=== PATIENT | male | born 1940 | race Caucasian/White ===

== ENCOUNTER 2016-10-14 11:22 | Inpatient (IN) | payer MEDICARE, BC ==
[2016-10-14] VITALS (9 sets, daily range): BP systolic 139–166; BP diastolic 61–97; PULSE 67–115; RESP 16–18; TEMP 98.2–99.1; O2SAT 97–98
[~2016-10-14] VITALS: Ht 175.3 cm; Wt 70.2 kg
[2016-10-14] MEDS ORDERED: FOLI1TAB4 PO (11:43)
[2016-10-14] MEDS ORDERED: B P MED PO (11:43)
[2016-10-14] MEDS ORDERED: SODIUM CHLOR 0.9% 1000 ML INJ 1,000 ML IV SCH (11:50)
--- NOTE | 2016-10-14 11:56 | PD ---
HPI Chief Complaint: GI Complaint Time Seen by Provider: 11:38 Travel History International Travel<30 days: No Contact w/Intl Traveler<30days: No Traveled to known affect area: No History of Present Illness HPI 76-year-old male with history of hypertension, alcoholism drinking a moderate amount of beer and whiskey daily for several years, here for evaluation of lower abdominal discomfort and black stools. Symptoms started yesterday. He had a couple episodes of vomiting today, but is unsure if there was blood or coffee-grounds. No history of abdominal surgeries. Abdominal discomfort is lower, mild, no modifying factors. He has felt somewhat weak, lightheaded, as well as chills. No antiplatelet or anticoagulant use. He has never had a colonoscopy. Last alcoholic beverage was around 1 PM yesterday. He states he has not felt like drinking because he feels sick. PFS Past Medical History Cardiovascular Problems: Yes (HTN) Diminished Hearing: No Hypertension: Yes Influenza Vaccination: No ?: Not Past Surgical History Surgical History: No Previous Surgery Other Surgery: Yes (finger amputation) Social History Alcohol Use: Yes (daily) Tobacco Use: No Allergies-Medications (Allergen,Severity, Reaction): Coded Allergies: No Known Allergies (Unverified , 10/14/16) Reported Meds & Prescriptions Reported Meds & Active Scripts Active Reported Folate (Folic Acid) 1 Mg Tab 1 Mg PO DAILY [b.p. med] 10 Mg PO DAILY Review of Systems Except as stated in HPI: all other systems reviewed are Neg Physical Exam Narrative GENERAL: Well-developed, well-nourished, comfortable, no acute distress. SKIN: Warm and dry. Pallor HEAD: Atraumatic. Normocephalic. EYES: Pupils equal and round. No scleral icterus. No injection or drainage. Conjunctival pallor. ENT: Mucous membranes pink and dry. NECK: Trachea midline. No JVD. CARDIOVASCULAR: Tachycardic, rate 110, regular. RESPIRATORY: No accessory muscle use. Clear to auscultation. Breath sounds equal bilaterally. GASTROINTESTINAL: Abdomen soft, non-tender, nondistended. Normal bowel sounds. No peritoneal signs. RECTUM: No masses, no fissures, no hemorrhoids, heme positive black stool. MUSCULOSKELETAL: No obvious deformities. No clubbing. No cyanosis. No edema. NEUROLOGICAL: Awake and alert. No obvious cranial nerve deficits. Motor grossly within normal limits. Normal speech. PSYCHIATRIC: Appropriate mood and affect; insight and judgment normal. Data Data Last Documented VS Vital Signs Date Time Temp Pulse Resp B/P Pulse Ox O2 Delivery O2 Flow Rate FiO2 10/14/16 13:46 67 18 166/82 98 Room Air 10/14/16 11:30 99.1 Orders Complete Blood Count With Diff (10/14/16 11:50) Comprehensive Metabolic Panel (10/14/16 11:50) Prothrombin Time / Inr (Pt) (10/14/16 11:50) Act Partial Throm Time (Ptt) (10/14/16 11:50) Ct Abd/Pel W Iv Contrast(Rout) (10/14/16 11:50) Iv Access Insert/Monitor (10/14/16 11:50) Ecg Monitoring (10/14/16 11:50) Oximetry (10/14/16 11:50) Sodium Chlor 0.9% 1000 Ml Inj (Ns 1000 M (10/14/16 11:50) Sodium Chloride 0.9% Flush (Ns Flush) (10/14/16 12:00) Sodium Chloride 0.9% Flush (Ns Flush) (10/14/16 12:00) Octreotide Inj (Sandostatin Inj) (10/14/16 12:00) Pantoprazole Inj (Protonix Inj) (10/14/16 12:00) Pantoprazole Inj (Protonix Inj) (10/14/16 12:00) Type And Screen (10/14/16 11:57) Magnesium (Mg) (10/14/16 12:00) Iohexol 350 Inj (Omnipaque 350 Inj) (10/14/16 13:05) Labs Laboratory Tests Test 10/14/16 12:00 White Blood Count 8.5 TH/MM3 Red Blood Count 3.90 MIL/MM3 Hemoglobin 13.1 GM/DL Hematocrit 37.2 % Mean Corpuscular Volume 95.4 FL Mean Corpuscular Hemoglobin 33.7 PG Mean Corpuscular Hemoglobin 35.3 % Concent Red Cell Distribution Width 13.2 % Platelet Count 264 TH/MM3 Mean Platelet Volume 7.6 FL Neutrophils (%) (Auto) 68.5 % Lymphocytes (%) (Auto) 22.2 % Monocytes (%) (Auto) 6.9 % Eosinophils (%) (Auto) 1.3 % Basophils (%) (Auto) 1.1 % Neutrophils # (Auto) 5.8 TH/MM3 Lymphocytes # (Auto) 1.9 TH/MM3 Monocytes # (Auto) 0.6 TH/MM3 Eosinophils # (Auto) 0.1 TH/MM3 Basophils # (Auto) 0.1 TH/MM3 CBC Comment DIFF FINAL Differential Comment Prothrombin Time 10.6 SEC Prothromb Time International 1.0 RATIO Ratio Activated Partial 24.3 SEC Thromboplast Time Sodium Level 139 MEQ/L Potassium Level 4.3 MEQ/L Chloride Level 102 MEQ/L Carbon Dioxide Level 27.1 MEQ/L Anion Gap 10 MEQ/L Blood Urea Nitrogen 39 MG/DL Creatinine 1.10 MG/DL Estimat Glomerular Filtration 65 ML/MIN Rate Random Glucose 126 MG/DL Calcium Level 9.3 MG/DL Magnesium Level 1.7 MG/DL Total Bilirubin 1.0 MG/DL Aspartate Amino Transf 30 U/L (AST/SGOT) Alanine Aminotransferase 26 U/L (ALT/SGPT) Alkaline Phosphatase 51 U/L Total Protein 7.3 GM/DL Albumin 3.7 GM/DL [facility] Medical Decision Making Medical Screen Exam Complete: Yes Emergency Medical Condition: Yes Differential Diagnosis GI bleed likely upper, variceal bleed, gastritis, peptic ulcers, anemia, diverticular bleed, diverticulitis, colitis, AVM, colon cancer Narrative Course Vital signs show heart rate 115, blood pressure 141/97, pulse ox 98% on room air , oral temp of 99.1F. Patient was placed on the monitor, IV established, labs drawn. The patient was given a Protonix bolus and started on a Protonix drip for suspected upper GI bleed either from gastritis or peptic ulcers. There is no bleed is also on the differential. His hemoglobin is normal and his heart rate improved to 89 after receiving IV fluids. The patient had a short run of V. tach. Magnesium level will be checked. CBC is unremarkable. Specifically his hemoglobin is 13.1 and his hematocrit is 37.2. CMP is remarkable for BUN 39, otherwise unremarkable. This is likely secondary to GI bleed. Magnesium is 1.7. Coags are normal. After receiving lab results, case was discussed with on-call mink farmer Dr. Christianson who recommends that the patient be admitted to the main hospital for likely endoscopy tomorrow. CT abdomen pelvis: CONCLUSION: Other than some asymmetric size of the seminal vesicles, unremarkable CT scan of the abdomen and pelvis. Some areas of decompressed sigmoid colon with a thick wall, not an unusual finding. No adenopathy or mass is seen. The patient was made aware of all findings and of plan for admission for GI bleed. Case discussed with the patient's primary care physician Dr. Santana who will admit the patient to his service. HemaPrompt Point of Care Internal Pos. & Neg. Controls: Passed Fecal Specimen Occult Blood: Positive Comment Heme-positive black stool. Diagnosis Primary Impression: GI bleed Qualified Code: K92.1 - Gastrointestinal hemorrhage with melena Admitting Information Admitting Physician Requests: Admit Hi Solano MD Oct 14, 2016 11:56
[2016-10-14] MEDS ORDERED: OCTREOTIDE INJ 500 MCG in SODIUM CHLORID 0.9% 500 ML INJ 500 ML IV SCH (12:00)
[2016-10-14] MEDS ORDERED: PANTOPRAZOLE INJ 80 MG in SODIUM CHLORIDE 0.9% INJ 35 ML IV ONE (12:00)
[2016-10-14] MEDS ORDERED: SODIUM CHLORIDE 0.9% FLUSH 5 ML FLUSH IVF PRN ×2 (12:00)
[2016-10-14 12:11] LABS: AUTOMATED NEUTROPHIL # 5.8 TH/MM3 (1.8-7.7); BASOPHIL # 0.1 TH/MM3 (0-0.2); BASOPHIL % 1.1 % (0.0-2.0); EOSINOPHIL # 0.1 TH/MM3 (0-0.4); EOSINOPHIL % 1.3 % (0.0-4.0); HEMATOCRIT 37.2 % (39.0-51.0); HEMO FLAGS DIFF FINAL; LYMPH % 22.2 % (9.0-44.0); LYMPHOCYTE # 1.9 TH/MM3 (1.0-4.8); MEAN CELL VOLUME 95.4 FL (80.0-100.0); MEAN CORPUSCULAR HEMOGLOBIN 33.7 PG (27.0-34.0); MEAN CORPUSCULAR HGB CONC 35.3 % (32.0-36.0); MONO % 6.9 % (0.0-8.0); NEUT % 68.5 % (16.0-70.0); PLATELET COUNT 264 TH/MM3 (150-450); RED CELL DISTRIBUTION WIDTH 13.2 % (11.6-17.2); WHITE BLOOD COUNT 8.5 TH/MM3 (4.0-11.0)
[2016-10-14 12:19] LABS: CHLORIDE 102 MEQ/L (98-107); SODIUM (NA) 139 MEQ/L (136-145)
[2016-10-14 12:20] LABS: POTASSIUM 4.3 MEQ/L (3.5-5.1)
[2016-10-14] MEDS: PANTOPRAZOLE INJ 80 MG in SODIUM CHLORIDE 0.9% INJ 100 ML IV SCH ×2 (12:21→20:36)
[2016-10-14 12:23] LABS: ANION GAP 10 MEQ/L (5-15); BICARBONATE 27.1 MEQ/L (21.0-32.0); BLOOD UREA NITROGEN 39 MG/DL (7-18); MAGNESIUM 1.7 MG/DL (1.5-2.5)
[2016-10-14 12:24] LABS: APTT (PATIENT) 24.3 SEC (24.3-30.1); PROTHROMBIN TIME - PATIENT 10.6 SEC (9.8-11.6)
[2016-10-14 12:26] LABS: ALT (GPT) 26 U/L (12-78); AST (GOT) 30 U/L (15-37); GLOMERULAR FILTRATION RATE 65 ML/MIN (>89)
[2016-10-14 12:29] LABS: ALKALINE PHOSPHATASE 51 U/L (45-117)
[2016-10-14] MEDS ORDERED: IOHEXOL 350 MG/ML 10 ML VIAL (for RAD DIAG) IV ONE (13:05)
--- NOTE | 2016-10-14 13:27 | RADHPO ---
EXAM DATE/TIME: 10/14/2016 12:52 [facility] COMPARISON: No previous studies available for comparison. INDICATIONS : Lower abdomen back pain and black stool today. IV CONTRAST: 71 cc Omnipaque 350 (iohexol) IV ORAL CONTRAST: No oral contrast ingested. RADIATION DOSE: 9.95 CTDIvol (mGy) MEDICAL HISTORY : Hypertension. SURGICAL HISTORY : None. ENCOUNTER: Initial ACUITY: 1 day PAIN SCALE: 7/10 LOCATION: Bilateral lower quadrant TECHNIQUE: Volumetric scanning of the abdomen and pelvis was performed. Using automated exposure control and adjustment of the mA and/or kV according to patient size, radiation dose was kept as low as reasonably achievable to obtain optimal diagnostic quality images. FINDINGS: CT scan of the abdomen and pelvis demonstrates the liver, gallbladder, pancreas, adrenal glands and k idneys are unremarkable. Spleen is unremarkable. There is no bowel wall thickening. No obvious mas s is seen. The left seminal vesicle is slightly larger than the right. The bladder is unremarkable. Some portions of the sigmoid colon on the reformatted image is somewhat thick-walled but they are a lso not well distended. Bone windows are unremarkable. CONCLUSION: Other than some asymmetric size of the seminal vesicles, unremarkable CT scan of the abdomen and pelv is. Some areas of decompressed sigmoid colon with a thick wall, not an unusual finding. No adenopat hy or mass is seen. Robe Mendoza MD on October 14, 2016 at 13:14 Board Certified Radiologist. This report was verified electronically.
--- NOTE | 2016-10-14 15:53 | HHI.HP ---
History of Present Illness Primary Care Physician Austin Santana, DO Admission Diagnosis GI bleed dark stool black for several days Diagnoses: History of Present Illness long trm alcohol daily use now with dark stools Review of Systems Gastrointestinal: COMPLAINS OF: Abdominal pain, Black stools Past Family Social History Allergies: Coded Allergies: No Known Allergies (Unverified , 10/14/16) Past Medical History hypertension Past Surgical History denies Reported Medications Current Medications Medications (Trade) Dose Ordered Sig/Emre Route PRN Reason Start Time Stop Time Status Last Admin Dose Admin IV Flush (NS Flush) 2 ml UNSCH PRN IVF FLUSH AFTER USING IV ACCESS 10/14/16 12:00 10/14/16 12:10 IV Flush 2 ml 2 ml UNSCH PRN IVF FLUSH AFTER USING IV ACCESS 10/14/16 12:00 Pantoprazole Sodium/Sodium Chloride (Protonix Inj/NS Inj) 100 ml @ 10 mls/hr Q10H IV 10/14/16 12:00 10/14/16 12:21 Active Ordered Medications Current Medications Medications (Trade) Dose Ordered Sig/Emre Route PRN Reason Start Time Stop Time Status Last Admin Dose Admin IV Flush (NS Flush) 2 ml UNSCH PRN IVF FLUSH AFTER USING IV ACCESS 10/14/16 12:00 10/14/16 12:10 IV Flush 2 ml 2 ml UNSCH PRN IVF FLUSH AFTER USING IV ACCESS 10/14/16 12:00 Pantoprazole Sodium/Sodium Chloride (Protonix Inj/NS Inj) 100 ml @ 10 mls/hr Q10H IV 10/14/16 12:00 10/14/16 12:21 Family History father with a gi cancer Current Medications Medications (Trade) Dose Ordered Sig/Emre Route PRN Reason Start Time Stop Time Status Last Admin Dose Admin IV Flush (NS Flush) 2 ml UNSCH PRN IVF FLUSH AFTER USING IV ACCESS 10/14/16 12:00 10/14/16 12:10 IV Flush 2 ml 2 ml UNSCH PRN IVF FLUSH AFTER USING IV ACCESS 10/14/16 12:00 Pantoprazole Sodium/Sodium Chloride (Protonix Inj/NS Inj) 100 ml @ 10 mls/hr Q10H IV 10/14/16 12:00 10/14/16 12:21 Social History heavy daily drinker six pack plus of beer and 3-5 alcoholic drinks per evening Physical Exam Vital Signs Vital Signs Date Time Temp Pulse Resp B/P Pulse Ox O2 Delivery O2 Flow Rate FiO2 10/14/16 15:11 68 18 154/73 97 Room Air 10/14/16 13:46 67 18 166/82 98 Room Air 10/14/16 13:07 71 18 158/72 97 Room Air 10/14/16 12:04 89 18 151/85 98 Room Air 10/14/16 11:30 99.1 115 16 141/97 98 Physical Exam GENERAL: This is a well-nourished, well-developed patient, in no apparent distress. SKIN: No rashes, ecchymoses or lesions. Cool and dry. HEAD: Atraumatic. Normocephalic. No temporal or scalp tenderness. EYES: Pupils equal round and reactive. Extraocular motions intact. No scleral icterus. No injection or drainage. ENT: Nose without bleeding, purulent drainage or septal hematoma. Throat without erythema, tonsillar hypertrophy or exudate. Uvula midline. Airway patent.many missing teeth NECK: Trachea midline. No JVD or lymphadenopathy. Supple, nontender, no meningeal signs. CARDIOVASCULAR: Regular rate and rhythm without murmurs, gallops, or rubs. RESPIRATORY: Clear to auscultation. Breath sounds equal bilaterally. No wheezes , rales, or rhonchi. GASTROINTESTINAL: Abdomen soft, epigastric tenderness present, nondistended. No hepato-splenomegaly, or palpable masses. No guarding. MUSCULOSKELETAL: Extremities without clubbing, cyanosis, or edema. No joint tenderness, effusion, or edema noted. No calf tenderness. Negative Homans sign bilaterally. NEUROLOGICAL: Awake and alert. Cranial nerves II through XII intact. Motor and sensory grossly within normal limits. Five out of 5 muscle strength in all muscle groups. Normal speech. Laboratory Laboratory Tests Test 10/14/16 12:00 White Blood Count 8.5 Red Blood Count 3.90 Hemoglobin 13.1 Hematocrit 37.2 Mean Corpuscular Volume 95.4 Mean Corpuscular Hemoglobin 33.7 Mean Corpuscular Hemoglobin 35.3 Concent Red Cell Distribution Width 13.2 Platelet Count 264 Mean Platelet Volume 7.6 Neutrophils (%) (Auto) 68.5 Lymphocytes (%) (Auto) 22.2 Monocytes (%) (Auto) 6.9 Eosinophils (%) (Auto) 1.3 Basophils (%) (Auto) 1.1 Neutrophils # (Auto) 5.8 Lymphocytes # (Auto) 1.9 Monocytes # (Auto) 0.6 Eosinophils # (Auto) 0.1 Basophils # (Auto) 0.1 CBC Comment DIFF FINAL Differential Comment Prothrombin Time 10.6 Prothromb Time International 1.0 Ratio Activated Partial 24.3 Thromboplast Time Sodium Level 139 Potassium Level 4.3 Chloride Level 102 Carbon Dioxide Level 27.1 Anion Gap 10 Blood Urea Nitrogen 39 Creatinine 1.10 Estimat Glomerular Filtration 65 Rate Random Glucose 126 Calcium Level 9.3 Magnesium Level 1.7 Total Bilirubin 1.0 Aspartate Amino Transf 30 (AST/SGOT) Alanine Aminotransferase 26 (ALT/SGPT) Alkaline Phosphatase 51 Total Protein 7.3 Albumin 3.7 Blood Type A POSITIVE Antibody Screen NEGATIVE Blood Bank Comment Result Diagram: 10/14/16 1200 10/14/16 1200 Assessment and Plan Assessment and Plan gi bleed will admit and request GI for panendoscopy HTN controlled will transfer to main campus for gi consult and endoscopy Discharge Planning home Austin Santana DO Oct 14, 2016 15:53
[2016-10-14] MEDS ORDERED: LORazepam 2 MG/ML VIAL IV PUSH PRN ×4 (16:00)
[2016-10-14] MEDS ORDERED: NALOXONE HCL 0.4 MG/ML AMP IV PRN (16:00)
[2016-10-14] MEDS ORDERED: LORazepam 2 MG TAB PO PRN (16:00)
[2016-10-14] MEDS ORDERED: LORazepam 1 MG TAB PO PRN (16:00)
[2016-10-14] MEDS ORDERED: FLUMAZENIL 0.5 MG/5 ML VIAL IV PUSH PRN (16:00)
[2016-10-14] MEDS ORDERED: SODIUM CHLORIDE 0.9% FLUSH 5 ML FLUSH FLUSH PRN (16:00)
[2016-10-14] MEDS ORDERED: LISI10TA3 PO (16:11)
[2016-10-14 16:14] LABS: AUTOMATED NEUTROPHIL # 5.7 TH/MM3 (1.8-7.7); BASOPHIL # 0.2 TH/MM3 (0-0.2); BASOPHIL % 1.7 % (0.0-2.0); EOSINOPHIL # 0.1 TH/MM3 (0-0.4); EOSINOPHIL % 0.9 % (0.0-4.0); HEMATOCRIT 35.3 % (39.0-51.0); HEMO FLAGS AUTO DIFF; LYMPHOCYTE # 2.5 TH/MM3 (1.0-4.8); MEAN CELL VOLUME 96.1 FL (80.0-100.0); MEAN CORPUSCULAR HGB CONC 34.3 % (32.0-36.0); MONO % 5.5 % (0.0-8.0); NEUT % 63.9 % (16.0-70.0); PLATELET COUNT 253 TH/MM3 (150-450); RED BLOOD COUNT 3.68 MIL/MM3 (4.50-5.90); RED CELL DISTRIBUTION WIDTH 13.4 % (11.6-17.2)
[2016-10-14 16:22] LABS: CHLORIDE 104 MEQ/L (98-107); POTASSIUM 3.9 MEQ/L (3.5-5.1); SODIUM (NA) 141 MEQ/L (136-145)
[2016-10-14 16:26] LABS: ANION GAP 12 MEQ/L (5-15); BICARBONATE 25.5 MEQ/L (21.0-32.0); BLOOD UREA NITROGEN 34 MG/DL (7-18)
[2016-10-14 16:29] LABS: ALT (GPT) 22 U/L (12-78); AST (GOT) 19 U/L (15-37); GLOMERULAR FILTRATION RATE 78 ML/MIN (>89); SCAN/DIFF AUTO DIFF CONFIRMED
[2016-10-14 16:31] LABS: TOTAL BILIRUBIN ADULT 0.8 MG/DL (0.2-1.0)
[2016-10-14 16:32] LABS: ALKALINE PHOSPHATASE 49 U/L (45-117)
[2016-10-14] MEDS: SODIUM CHLORIDE 0.9% FLUSH 5 ML FLUSH FLUSH SCH (20:36)
[2016-10-15] VITALS (7 sets, daily range): BP systolic 103–157; BP diastolic 67–80; PULSE 57–74; RESP 16–19; TEMP 97.7–98.4; O2SAT 96–98
[2016-10-15 07:56] LABS: AUTOMATED NEUTROPHIL # 3.6 TH/MM3 (1.8-7.7); BASOPHIL % 0.5 % (0.0-2.0); EOSINOPHIL # 0.4 TH/MM3 (0-0.4); EOSINOPHIL % 5.3 % (0.0-4.0); HEMATOCRIT 31.4 % (39.0-51.0); HEMO FLAGS DIFF FINAL; LYMPH % 33.1 % (9.0-44.0); LYMPHOCYTE # 2.2 TH/MM3 (1.0-4.8); MEAN CORPUSCULAR HEMOGLOBIN 33.2 PG (27.0-34.0); MEAN CORPUSCULAR HGB CONC 34.2 % (32.0-36.0); MONO % 6.5 % (0.0-8.0); NEUT % 54.6 % (16.0-70.0); PLATELET COUNT 208 TH/MM3 (150-450); RED BLOOD COUNT 3.24 MIL/MM3 (4.50-5.90); RED CELL DISTRIBUTION WIDTH 13.5 % (11.6-17.2); WHITE BLOOD COUNT 6.7 TH/MM3 (4.0-11.0)
[2016-10-15 08:18] LABS: ALKALINE PHOSPHATASE 47 U/L (45-117); ALT (GPT) 20 U/L (12-78); ANION GAP 9 MEQ/L (5-15); AST (GOT) 17 U/L (15-37); BICARBONATE 27.6 MEQ/L (21.0-32.0); BLOOD UREA NITROGEN 26 MG/DL (7-18); CHLORIDE 104 MEQ/L (98-107); GLOMERULAR FILTRATION RATE 77 ML/MIN (>89); POTASSIUM 3.8 MEQ/L (3.5-5.1); SODIUM (NA) 141 MEQ/L (136-145); TOTAL BILIRUBIN ADULT 0.9 MG/DL (0.2-1.0)
[2016-10-15] MEDS: LISINOPRIL 10 MG TAB PO SCH (08:58)
[2016-10-15] MEDS: SODIUM CHLORIDE 0.9% FLUSH 5 ML FLUSH FLUSH SCH ×2 (08:58→20:27)
[2016-10-15] MEDS: FOLIC ACID 1 MG TAB PO SCH (08:58)
[2016-10-15] MEDS: PANTOPRAZOLE INJ 80 MG in SODIUM CHLORIDE 0.9% INJ 100 ML IV SCH ×2 (08:58→17:43)
--- NOTE | 2016-10-15 14:07 | HHI.PR ---
Subjective Remarks resting quietly no further dark stools Objective Vital Signs Date Time Temp Pulse Resp B/P Pulse Ox O2 Delivery O2 Flow Rate FiO2 10/15/16 12:19 98.2 60 18 137/67 98 10/15/16 08:07 98.3 60 18 157/70 98 10/15/16 04:00 97.7 57 16 114/77 97 10/15/16 00:00 98.4 66 18 103/68 97 10/14/16 20:32 75 10/14/16 20:00 98.4 74 18 139/61 97 10/14/16 18:43 98.2 77 18 165/81 97 10/14/16 17:15 73 18 155/87 98 Room Air 10/14/16 15:11 68 18 154/73 97 Room Air I/O 10/14/16 10/14/16 10/14/16 10/15/16 10/15/16 10/15/16 07:00 15:00 23:00 07:00 15:00 23:00 Intake Total 1000 ml 72 ml 192 ml Balance 1000 ml 72 ml 192 ml Intake Oral 120 ml IV Total 1000 ml 72 ml 72 ml # Voids 1 1 # Bowel Movements 2 1 Result Diagram: 10/15/16 0727 10/15/16 0727 Imaging Last Impressions Abdomen/Pelvis CT 10/14/16 1150 Signed Impressions: Service Date/Time: Friday, October 14, 2016 12:52 - CONCLUSION: Other than some asymmetric size of the seminal vesicles, unremarkable CT scan of the abdomen and pelvis. Some areas of decompressed sigmoid colon with a thick wall , not an unusual finding. No adenopathy or mass is seen. Robe Mendoza MD Objective Remarks GENERAL: SKIN: Warm and dry. HEAD: Atraumatic. Normocephalic. EYES: Pupils equal and round. No scleral icterus. No injection or drainage. ENT: No nasal bleeding or discharge. Mucous membranes pink and moist. NECK: Trachea midline. No JVD. CARDIOVASCULAR: Regular rate and rhythm. RESPIRATORY: No accessory muscle use. Clear to auscultation. Breath sounds equal bilaterally. GASTROINTESTINAL: Abdomen soft, non-tender, nondistended. Hepatic and splenic margins not palpable. MUSCULOSKELETAL: Extremities without clubbing, cyanosis, or edema. No obvious deformities. NEUROLOGICAL: Awake and alert. No obvious cranial nerve deficits. Motor grossly within normal limits. Five out of 5 muscle strength in the arms and legs. Normal speech. PSYCHIATRIC: Appropriate mood and affect; insight and judgment normal. Medications and IVs Current Medications Medications (Trade) Dose Ordered Sig/Emre Route PRN Reason Start Time Stop Time Status Last Admin Dose Admin IV Flush (NS Flush) 2 ml UNSCH PRN IVF FLUSH AFTER USING IV ACCESS 10/14/16 12:00 10/14/16 12:10 IV Flush 2 ml 2 ml UNSCH PRN IVF FLUSH AFTER USING IV ACCESS 10/14/16 12:00 Pantoprazole Sodium/Sodium Chloride (Protonix Inj/NS Inj) 100 ml @ 10 mls/hr Q10H IV 10/14/16 12:00 10/15/16 08:58 Folic Acid (Folate) 1 mg DAILY PO 10/15/16 09:00 10/15/16 08:58 Lisinopril (Prinivil) 10 mg DAILY PO 10/15/16 09:00 10/15/16 08:58 IV Flush (NS Flush) 2 ml UNSCH PRN FLUSH FLUSH AFTER USING IV ACCESS 10/14/16 16:00 IV Flush (NS Flush) 2 ml BID FLUSH 10/14/16 21:00 10/15/16 08:58 Naloxone HCl (Narcan Inj) 0.4 mg UNSCH PRN IV SEE LABEL COMMENTS 10/14/16 16:00 Lorazepam (Ativan) 1 mg Q4H PRN PO CIWA 8 - 10 10/14/16 16:00 Lorazepam (Ativan Inj) 1 mg Q4H PRN IV PUSH CIWA 8 - 10 10/14/16 16:00 Lorazepam (Ativan) 2 mg Q2H PRN PO CIWA 11-14 10/14/16 16:00 Lorazepam (Ativan Inj) 2 mg Q2H PRN IV PUSH CIWA 11-14 10/14/16 16:00 Lorazepam (Ativan Inj) 2 mg Q1H PRN IV PUSH CIWA 15-20 10/14/16 16:00 Lorazepam (Ativan Inj) 2 mg Q15M PRN IV PUSH CIWA > 20 10/14/16 16:00 Assessment and Plan Assessment and Plan gi bleed will admit and request GI for panendoscopy HTN controlled await gi consult and endoscopy Discharge Planning 1hAustin Shaw DO Oct 15, 2016 14:07
[2016-10-15] MEDS ORDERED: MAGNESIUM CITRATE SOLN 300 ML BTL PO ONE (18:00)
[2016-10-15 20:36] LABS: BICARBONATE 27.8 MEQ/L (21.0-32.0); POTASSIUM 3.5 MEQ/L (3.5-5.1)
--- NOTE | 2016-10-15 20:51 | PD.CONS ---
HPI History of Present Illness This is a 76 year old male who presents with complaints of black tarry stool that started yesterday and this concerned him and so he presented to the emergency room the patient reports history of upper GI bleed about 3 years ago and he had ulcers he reports he did have upper endoscopy but does not recall having had a colonoscopy the patient admits to using Aleve some irregularly he denies any abdominal pain denies any nausea vomiting hematemesis coffee-ground emesis denies any change in appetite or weight loss denies any lightheadedness or dizziness denies any chest pain or shortness of breath PFSH Past Medical History Hypertension, alcoholism, history of peptic ulcer disease Past Surgical History finger amputation Coded Allergies: No Known Allergies (Unverified , 10/14/16) Medications Folate (Folic Acid) 1 Mg Tab 1 Mg PO DAILY [b.p. med] 10 Mg PO DAILY Aleve Family History Noncontributory Social History Patient admits to alcohol but no tobacco Review of Systems ROS Review of systems Patient denies any headache dizziness blurry vision, denies any chest pain shortness of breath cough fever chills, Denies any palpitations or fatigue denies any polyuria dysuria hematuria, denies any numbness tingling or weakness, denies any skin rash pruritus or jaundice, denies any easy bruising or bleeding tendency, denies any recent change in mood GI Exam Vitals I&O Vital Signs Date Time Temp Pulse Resp B/P Pulse Ox O2 Delivery O2 Flow Rate FiO2 10/15/16 16:37 98.3 59 19 129/80 97 10/15/16 12:19 98.2 60 18 137/67 98 10/15/16 08:07 98.3 60 18 157/70 98 10/15/16 04:00 97.7 57 16 114/77 97 10/15/16 00:00 98.4 66 18 103/68 97 I/O 10/14/16 10/14/16 10/14/16 10/15/16 10/15/16 10/15/16 07:00 15:00 23:00 07:00 15:00 23:00 Intake Total 1000 ml 72 ml 192 ml 480 ml 191 ml Balance 1000 ml 72 ml 192 ml 480 ml 191 ml Intake Oral 120 ml 480 ml IV Total 1000 ml 72 ml 72 ml 191 ml # Voids 1 1 2 # Bowel Movements 2 1 0 Imaging Last Impressions Abdomen/Pelvis CT 10/14/16 1150 Signed Impressions: Service Date/Time: Friday, October 14, 2016 12:52 - CONCLUSION: Other than some asymmetric size of the seminal vesicles, unremarkable CT scan of the abdomen and pelvis. Some areas of decompressed sigmoid colon with a thick wall , not an unusual finding. No adenopathy or mass is seen. Robe Mendoza MD Laboratory Test 10/15/16 10/15/16 07:27 20:05 White Blood Count 6.7 TH/MM3 Red Blood Count 3.24 MIL/MM3 Hemoglobin 10.7 GM/DL Hematocrit 31.4 % Mean Corpuscular Volume 97.0 FL Mean Corpuscular Hemoglobin 33.2 PG Mean Corpuscular Hemoglobin 34.2 % Concent Red Cell Distribution Width 13.5 % Platelet Count 208 TH/MM3 Mean Platelet Volume 7.5 FL Neutrophils (%) (Auto) 54.6 % Lymphocytes (%) (Auto) 33.1 % Monocytes (%) (Auto) 6.5 % Eosinophils (%) (Auto) 5.3 % Basophils (%) (Auto) 0.5 % Neutrophils # (Auto) 3.6 TH/MM3 Lymphocytes # (Auto) 2.2 TH/MM3 Monocytes # (Auto) 0.4 TH/MM3 Eosinophils # (Auto) 0.4 TH/MM3 Basophils # (Auto) 0.0 TH/MM3 CBC Comment DIFF FINAL Differential Comment Sodium Level 141 MEQ/L 140 MEQ/L Potassium Level 3.8 MEQ/L 3.5 MEQ/L Chloride Level 104 MEQ/L 103 MEQ/L Carbon Dioxide Level 27.6 MEQ/L 27.8 MEQ/L Anion Gap 9 MEQ/L 9 MEQ/L Blood Urea Nitrogen 26 MG/DL 18 MG/DL Creatinine 0.95 MG/DL 1.06 MG/DL Estimat Glomerular Filtration 77 ML/MIN 68 ML/MIN Rate Random Glucose 83 MG/DL 101 MG/DL Calcium Level 8.7 MG/DL 9.0 MG/DL Total Bilirubin 0.9 MG/DL Aspartate Amino Transf 17 U/L (AST/SGOT) Alanine Aminotransferase 20 U/L (ALT/SGPT) Alkaline Phosphatase 47 U/L Total Protein 6.2 GM/DL Albumin 3.4 GM/DL Physical Examination HEENT: Pupils round and reactive to light; normocephalic; atraumatic; no jaundice. Throat is clear. NECK: Neck is supple, no JVD, no lymphadenopathy. CHEST: Chest is clear to auscultation and percussion. CARDIAC: Regular rate and rhythm with no murmur gallop or rubs. ABDOMEN: Soft, nondistended, nontender; no hepatosplenomegaly; bowel sounds are present in all four quadrants. EXTREMITIES: No clubbing, cyanosis, or edema. SKIN: Normal; no rash; no jaundice. FAMILY CASEWORKER: No focal deficits; alert and oriented times three. Assessment and Plan Plan Patient with complaints of melena with history of peptic ulcer disease and a major upper GI bleed several years ago he admits to using nonsteroidals and continues to drink alcohol regularly and he has never had a colonoscopy I do agree with current supportive care No evidence of acute or active GI bleed We will plan for an EGD and a colonoscopy tomorrow Monitor labs and vital signs and transfuse as needed Matt Christianson MD Oct 15, 2016 20:51
[2016-10-16] VITALS (7 sets, daily range): BP systolic 132–181; BP diastolic 66–98; PULSE 52–63; RESP 18; TEMP 97.8–98.4; O2SAT 94–98
[2016-10-16] MEDS: PANTOPRAZOLE INJ 80 MG in SODIUM CHLORIDE 0.9% INJ 100 ML IV SCH ×2 (04:00→15:32)
[2016-10-16] MEDS ORDERED: MAGNESIUM CITRATE SOLN 300 ML BTL PO ONE ×2 (06:00)
[2016-10-16 07:05] LABS: AUTOMATED NEUTROPHIL # 4.7 TH/MM3 (1.8-7.7); BASOPHIL % 0.3 % (0.0-2.0); EOSINOPHIL # 0.3 TH/MM3 (0-0.4); EOSINOPHIL % 3.7 % (0.0-4.0); HEMATOCRIT 31.5 % (39.0-51.0); HEMO FLAGS DIFF FINAL; LYMPH % 22.6 % (9.0-44.0); LYMPHOCYTE # 1.6 TH/MM3 (1.0-4.8); MEAN CELL VOLUME 97.5 FL (80.0-100.0); MEAN CORPUSCULAR HGB CONC 34.8 % (32.0-36.0); MONO % 7.6 % (0.0-8.0); NEUT % 65.8 % (16.0-70.0); PLATELET COUNT 211 TH/MM3 (150-450); RED BLOOD COUNT 3.23 MIL/MM3 (4.50-5.90); RED CELL DISTRIBUTION WIDTH 13.9 % (11.6-17.2); WHITE BLOOD COUNT 7.1 TH/MM3 (4.0-11.0)
[2016-10-16 07:22] LABS: INTERNATIONAL NORMALIZED RATIO 0.9 RATIO; PROTHROMBIN TIME - PATIENT 10.2 SEC (9.8-11.6)
[2016-10-16 07:30] LABS: BICARBONATE 28.9 MEQ/L (21.0-32.0); POTASSIUM 3.5 MEQ/L (3.5-5.1)
[2016-10-16] MEDS: LISINOPRIL 10 MG TAB PO SCH (09:02)
[2016-10-16] MEDS: SODIUM CHLORIDE 0.9% FLUSH 5 ML FLUSH FLUSH SCH ×2 (09:02→20:44)
[2016-10-16] MEDS: FOLIC ACID 1 MG TAB PO SCH (09:02)
--- NOTE | 2016-10-16 12:45 | HHI.PR ---
Subjective Remarks Patient seen at bedside. Denies any SOB or CP. Denies any abdominal discomfort. Scheduled for a EGD and colonoscopy. Finished prep. Objective Vital Signs Date Time Temp Pulse Resp B/P Pulse Ox O2 Delivery O2 Flow Rate FiO2 10/16/16 08:00 98.1 56 18 134/66 94 10/16/16 04:00 97.8 60 18 156/72 97 10/16/16 00:00 98.2 60 18 142/66 98 10/15/16 20:00 98.4 74 18 140/68 96 10/15/16 19:52 67 10/15/16 16:37 98.3 59 19 129/80 97 I/O 10/15/16 10/15/16 10/15/16 10/16/16 10/16/16 10/16/16 07:00 15:00 23:00 07:00 15:00 23:00 Intake Total 192 ml 480 ml 504 ml 75 ml Balance 192 ml 480 ml 504 ml 75 ml Intake Oral 120 ml 480 ml 240 ml 0 ml IV Total 72 ml 264 ml 75 ml # Voids 1 2 1 1 # Bowel Movements 1 0 1 3 Result Diagram: 10/16/16 0632 10/16/16 0632 Other Results GENERAL: This is a well-nourished, well-developed patient, in no apparent distress. SKIN: No rashes, ecchymoses or lesions. Cool and dry. HEAD: Atraumatic. Normocephalic. EYES: Pupils equal round and reactive. NECK: Trachea midline. No JVD. Neck supple and nontender. CARDIOVASCULAR: Regular rate and rhythm without murmurs, gallops, or rubs. RESPIRATORY: Clear to auscultation. Breath sounds equal bilaterally. No wheezes , rales, or rhonchi. GASTROINTESTINAL: Abdomen soft, epigastric tenderness present, nondistended. MUSCULOSKELETAL: Extremities without cyanosis or edema. No calf tenderness. Negative Homans sign bilaterally. NEUROLOGICAL: Awake and alert. Normal speech. Medications and IVs Current Medications Medications (Trade) Dose Ordered Sig/Emre Route Start Time Stop Time Status Last Admin (NS Flush) 2 ml UNSCH PRN IVF 10/14/16 12:00 10/14/16 12:10 IV Flush 2 ml 2 ml UNSCH PRN IVF 10/14/16 12:00 (Protonix Inj/NS Inj) 100 ml @ 10 mls/hr Q10H IV 10/14/16 12:00 10/16/16 04:00 (Folate) 1 mg DAILY PO 10/15/16 09:00 10/16/16 09:02 (Prinivil) 10 mg DAILY PO 10/15/16 09:00 10/16/16 09:02 (NS Flush) 2 ml UNSCH PRN FLUSH 10/14/16 16:00 (NS Flush) 2 ml BID FLUSH 10/14/16 21:00 10/16/16 09:02 (Narcan Inj) 0.4 mg UNSCH PRN IV 10/14/16 16:00 (Ativan) 1 mg Q4H PRN PO 10/14/16 16:00 (Ativan Inj) 1 mg Q4H PRN IV PUSH 10/14/16 16:00 (Ativan) 2 mg Q2H PRN PO 10/14/16 16:00 (Ativan Inj) 2 mg Q2H PRN IV PUSH 10/14/16 16:00 (Ativan Inj) 2 mg Q1H PRN IV PUSH 10/14/16 16:00 (Ativan Inj) 2 mg Q15M PRN IV PUSH 10/14/16 16:00 Assessment and Plan Problem List: (1) GI bleed Status: Acute Plan: Patient denies any abdominal discomfort. Reports that he had dark tarry stools at home. He is on a Protonix gtt and plan for a EGD and colonoscopy today. Patient has completed the prep. (2) Hypertension Status: Chronic Plan: Well controlled with a Blood pressure of 134/66. Continue lisinopril. (3) Folic acid deficiency anemia Status: Acute Plan: Patient with folic acid deficiency most likely to ETOH abuse. Will continue replacement. (4) ETOH abuse Status: Acute Plan: Patient is a daily ETOH user and when seen in clinic is not interested in quitting. Has Ativan ordered as needed for withdrawals. Will discuss ETOH cessation Discussed Condition With Assessment and plan discussed with Dr. Santana Discharge Planning Plan to discharge home Ly Dozier Oct 16, 2016 12:45
[2016-10-16] MEDS ORDERED: PROPOFOL 200 MG/20 ML AMP IV ONE (13:48)
[2016-10-17] VITALS: BP 146/83; PULSE 59; RESP 18; TEMP 98.1; O2SAT 98
[2016-10-17] MEDS: PANTOPRAZOLE INJ 80 MG in SODIUM CHLORIDE 0.9% INJ 100 ML IV SCH ×2 (00:24→09:40)
[2016-10-17 04:00] VITALS: BP 127/66; PULSE 52; RESP 18; TEMP 97.8; O2SAT 98
[2016-10-17 06:53] LABS: AUTOMATED NEUTROPHIL # 5.2 TH/MM3 (1.8-7.7); BASOPHIL % 0.2 % (0.0-2.0); EOSINOPHIL # 0.3 TH/MM3 (0-0.4); EOSINOPHIL % 3.3 % (0.0-4.0); HEMATOCRIT 28.5 % (39.0-51.0); HEMO FLAGS DIFF FINAL; LYMPHOCYTE # 1.6 TH/MM3 (1.0-4.8); MEAN CELL VOLUME 97.1 FL (80.0-100.0); MEAN CORPUSCULAR HEMOGLOBIN 33.4 PG (27.0-34.0); MEAN CORPUSCULAR HGB CONC 34.4 % (32.0-36.0); MONO % 7.5 % (0.0-8.0); PLATELET COUNT 183 TH/MM3 (150-450); RED BLOOD COUNT 2.94 MIL/MM3 (4.50-5.90); RED CELL DISTRIBUTION WIDTH 13.5 % (11.6-17.2); WHITE BLOOD COUNT 7.7 TH/MM3 (4.0-11.0)
[2016-10-17 07:21] LABS: ALKALINE PHOSPHATASE 44 U/L (45-117); ALT (GPT) 26 U/L (12-78); ANION GAP 9 MEQ/L (5-15); AST (GOT) 24 U/L (15-37); BICARBONATE 28.8 MEQ/L (21.0-32.0); BLOOD UREA NITROGEN 16 MG/DL (7-18); CHLORIDE 104 MEQ/L (98-107); GLOMERULAR FILTRATION RATE 92 ML/MIN (>89); MAGNESIUM 2.4 MG/DL (1.5-2.5); POTASSIUM 3.5 MEQ/L (3.5-5.1); SODIUM (NA) 142 MEQ/L (136-145); TOTAL BILIRUBIN ADULT 0.8 MG/DL (0.2-1.0)
[2016-10-17 08:00] VITALS: BP 176/74; PULSE 54; PULSE 58; RESP 18; TEMP 98.4; O2SAT 97
[2016-10-17] MEDS: LISINOPRIL 10 MG TAB PO SCH (08:41)
[2016-10-17] MEDS: FOLIC ACID 1 MG TAB PO SCH (08:41)
[2016-10-17] MEDS: SODIUM CHLORIDE 0.9% FLUSH 5 ML FLUSH FLUSH SCH (08:41)
[2016-10-17] MEDS ORDERED: PROT40TA PO (11:50)
--- NOTE | 2016-10-17 11:59 | HHI.DS ---
Discharge Summary Admission Date Oct 14, 2016 at 14:04 Discharge Date: Oct 17, 2016 Admitting Diagnosis GI bleed Procedures EGD and colonoscopy CBC/BMP: 10/17/16 0600 10/17/16 0600 Significant Findings Laboratory Tests Test 10/14/16 10/14/16 10/15/16 10/15/16 12:00 16:00 07:27 20:05 Red Blood Count 3.90 MIL/MM3 3.68 MIL/MM3 3.24 MIL/MM3 (4.50-5.90) (4.50-5.90) (4.50-5.90) Hematocrit 37.2 % 35.3 % 31.4 % (39.0-51.0) (39.0-51.0) (39.0-51.0) Blood Urea Nitrogen 39 MG/DL (7-18) 34 MG/DL (7-18) 26 MG/DL (7-18) Estimat Glomerular Filtration 65 ML/MIN (>89) 78 ML/MIN (>89) 77 ML/MIN (>89) 68 ML/MIN (>89) Rate Random Glucose 126 MG/DL (74-106) Hemoglobin 12.1 GM/DL 10.7 GM/DL (13.0-17.0) (13.0-17.0) Eosinophils (%) (Auto) 5.3 % (0.0-4.0) Total Protein 6.2 GM/DL (6.4-8.2) Test 10/16/16 10/17/16 06:32 06:00 Red Blood Count 3.23 MIL/MM3 2.94 MIL/MM3 (4.50-5.90) (4.50-5.90) Hemoglobin 11.0 GM/DL 9.8 GM/DL (13.0-17.0) (13.0-17.0) Hematocrit 31.5 % 28.5 % (39.0-51.0) (39.0-51.0) Estimat Glomerular Filtration 72 ML/MIN (>89) Rate Random Glucose 108 MG/DL (74-106) Calcium Level 8.3 MG/DL (8.5-10.1) Alkaline Phosphatase 44 U/L (45-117) Total Protein 5.9 GM/DL (6.4-8.2) Albumin 3.1 GM/DL (3.4-5.0) PE at Discharge GENERAL: This is a well-nourished, well-developed patient, in no apparent distress. SKIN: No rashes, ecchymoses or lesions. Cool and dry. HEAD: Atraumatic. Normocephalic. EYES: Pupils equal round and reactive. NECK: Trachea midline. No JVD. Neck supple and nontender. CARDIOVASCULAR: Regular rate and rhythm without murmurs, gallops, or rubs. RESPIRATORY: Clear to auscultation. Breath sounds equal bilaterally. No wheezes , rales, or rhonchi. GASTROINTESTINAL: Abdomen soft, epigastric tenderness present, nondistended. MUSCULOSKELETAL: Extremities without cyanosis or edema. No calf tenderness. Negative Homans sign bilaterally. NEUROLOGICAL: Awake and alert. Normal speech. Transfer Summary 76-year-old male with history of hypertension, alcoholism drinking a moderate amount of beer and whiskey daily for several years, here for evaluation of lower abdominal discomfort and black stools. No history of abdominal surgeries. Abdominal discomfort is lower, mild, no modifying factors. He has felt somewhat weak, lightheaded, as well as chills. No antiplatelet or anticoagulant use. He has never had a colonoscopy. He states he has not felt like drinking because he feels sick. Patient was seen by GI and a EGD and colonoscopy was performed. EGD showed Gastritis. Colonoscopy showed hemorrhoids and diverticulosis. Plan for patient to be discharged home. Protonix added daily. follow up appt made with Dr. Santana. Discussed ETOH cessation. Discharge Disposition: Discharge Home Discharge Instructions DIET: Follow Instructions for: Diverticulitis Diet Activities you can perform: Regular-No Restrictions New Medications: Pantoprazole (Protonix) 40 Mg Tab 40 MG PO DAILY Reflux #30 Ref 0 TAB Continued Medications: Folic Acid (Folate) 1 Mg Tab 1 MG PO DAILY Nutritional Supplement Ref 0 TAB Lisinopril (Lisinopril) 10 Mg Tab 10 MG PO DAILY #30 Ref 0 TAB Additional Information Follow up appt with Dr. Santana on 10/25/15 at 10:45 Follow up with GI in 2 weeks. Ly Dozier Oct 17, 2016 11:59
[2016-10-17 12:00] VITALS: BP 129/64; PULSE 68; RESP 18; TEMP 98.3; O2SAT 96
== END 2016-10-17 12:23 | disposition home or self-care (01) | DRG 379 ==
LOC: PHED 11:22 → PHEDA 14:04 → N04A 18:20
PROVIDERS: ADMIT Family Medicine; ATTEND Family Medicine
PROC: 0DBN8ZX Excision of Sigmoid Colon, Via Natural or Artificial Opening Endoscopic, Diagnostic (ICD-10-PCS; 2016-10-16)
PROC: 0DBP8ZX Excision of Rectum, Via Natural or Artificial Opening Endoscopic, Diagnostic (ICD-10-PCS; 2016-10-16)
PROC: 0DB68ZX Excision of Stomach, Via Natural or Artificial Opening Endoscopic, Diagnostic (ICD-10-PCS; principal; 2016-10-16 13:28)
PROC: 0DBK8ZX Excision of Ascending Colon, Via Natural or Artificial Opening Endoscopic, Diagnostic (ICD-10-PCS; 2016-10-16 13:28)
DX: K92.1 Melena (principal); D52.8 Other folate deficiency anemias; I10 Essential (primary) hypertension; D12.2 Benign neoplasm of ascending colon; K57.30 Diverticulosis of large intestine without perforation or abscess without bleeding; D12.5 Benign neoplasm of sigmoid colon; K64.4 Residual hemorrhoidal skin tags; K64.8 Other hemorrhoids; D12.8 Benign neoplasm of rectum; K29.70 Gastritis, unspecified, without bleeding; F10.20 Alcohol dependence, uncomplicated
CPT/HCPCS: 74177; 80048; 80053; 80320; 82378; 83735; 84100; 85025; 85610; 85730; 86850; 86900; 86901; 88305; 88312; 96365; C9113; J7030; Q9967

== ENCOUNTER 2017-09-30 09:18 | Emergency (ER) | payer MEDICARE, BC ==
[~2017-09-30] VITALS: Ht 175.3 cm; Wt 92.3 kg
[~2017-09-30 09:18] MED LIST: FOLI1TAB4 PO; LISI10TA3 PO; PROT40TA PO
[2017-09-30 09:24] VITALS: BP 216/95; PULSE 90; RESP 16; TEMP 100.4; O2SAT 90
--- NOTE | 2017-09-30 09:52 | PD ---
HPI Chief Complaint: GI Complaint Time Seen by Provider: 09:44 Travel History International Travel<30 days: No Contact w/Intl Traveler<30days: No Traveled to known affect area: No History of Present Illness HPI c/o 6 days of cough, prod yellow sputum, some loose stools, but no abd pain/cp per patient. no aggravating or alleviating factors. patient denies any fever/ sob/cp/abdpain/backpain/n/v/....patient has had no distinct episode of chest pressure/pain/sob/south/at all and has only had cough for a week but became productive about 3 days ago. PFSH Past Medical History Anxiety: No Depression: No Cancer: No Cardiovascular Problems: Yes (HTN) Chest Pain: No Diminished Hearing: No Endocrine: No Genitourinary: No Hypertension: Yes Musculoskeletal: No Neurologic: No Psychiatric: No Reproductive: No Respiratory: No Influenza Vaccination: No Past Surgical History Abdominal Surgery: No Cardiac Surgery: No Ear Surgery: No Endocrine Surgery: No Eye Surgery: No Genitourinary Surgery: No Gynecologic Surgery: No Oral Surgery: No Thoracic Surgery: No Other Surgery: Yes (finger amputation) Social History Alcohol Use: Yes (daily) Tobacco Use: No Substance Use: No Allergies-Medications (Allergen,Severity, Reaction): Coded Allergies: No Known Allergies (Unverified Allergy, Unknown, 09/30/17) Reported Meds & Prescriptions Reported Meds & Active Scripts Active Ventolin Hfa 18 GM Inh (Albuterol Sulfate) 90 Mcg/Act Aer 1 Puff INH Q4H PRN Zithromax Z-Jayme (Azithromycin) 250 Mg Dspk 250 Mg PO DIRECTED 500 MG (2 tabs) day 1, then 1 tab days 2-5. Medrol Dosepak (Methylprednisolone) 4 Mg Dspk 4 Mg PO DIRECTED Per Pharmacist direction Protonix (Pantoprazole Sodium) 40 Mg Tab 40 Mg PO DAILY Reported Lisinopril 10 Mg Tab 10 Mg PO DAILY Review of Systems Except as stated in HPI: all other systems reviewed are Neg General / Constitutional: No: Fever Eyes: No: Visual changes HENT: No: Headaches Cardiovascular: No: Chest Pain or Discomfort Respiratory: Positive: Cough Gastrointestinal: Positive: Diarrhea Genitourinary: No: Dysuria Musculoskeletal: No: Pain Skin: No Rash Neurologic: No: Weakness Psychiatric: No: Depression Endocrine: No: Polydipsia Hematologic/Lymphatic: No: Easy Bruising Physical Exam Narrative GENERAL: SKIN: Warm and dry. HEAD: Atraumatic. Normocephalic. EYES: Pupils equal and round. No scleral icterus. No injection or drainage. ENT: No nasal bleeding or discharge. Mucous membranes pink and moist. NECK: Trachea midline. No JVD. CARDIOVASCULAR: Regular rate and rhythm. RESPIRATORY: No accessory muscle use. scattered ronchi. GASTROINTESTINAL: Abdomen soft, non-tender, nondistended. MUSCULOSKELETAL: Extremities without clubbing, cyanosis, or edema. No obvious deformities. NEUROLOGICAL: Awake and alert. No obvious cranial nerve deficits. Motor grossly within normal limits. Five out of 5 muscle strength in the arms and legs. Normal speech. PSYCHIATRIC: Appropriate mood and affect; insight and judgment normal. Data Data Last Documented VS Vital Signs Date Time Temp Pulse Resp B/P (MAP) Pulse Ox O2 Delivery O2 Flow Rate FiO2 09/30/17 11:04 71 24 182/72 (108) 95 Room Air 09/30/17 09:24 100.4 Orders Orders Electrocardiogram (09/30/17 09:47) Complete Blood Count With Diff (09/30/17 09:47) Comprehensive Metabolic Panel (09/30/17 09:47) Ckmb (Isoenzyme) Profile (09/30/17 09:47) Troponin I (09/30/17 09:47) B-Type Natriuretic Peptide (09/30/17 09:47) Lipase (09/30/17 09:47) Urinalysis - C+S If Indicated (09/30/17 09:47) Thyroid Stimulating Hormone (09/30/17 09:47) Influenzae A/B Antigen (09/30/17 09:47) Chest, Pa & Lat (09/30/17 09:47) Iv Access Insert/Monitor (09/30/17 09:47) Clonidine (Catapres) (09/30/17 10:00) CKMB (09/30/17 10:00) CKMB% (09/30/17 10:00) Levofloxacin (Levaquin) (09/30/17 11:00) Albuterol-Ipratropium Neb (Duoneb Neb) (09/30/17 11:00) Ed Discharge Order (09/30/17 11:32) Labs Laboratory Tests Test 09/30/17 10:00 09/30/17 11:00 White Blood Count 3.7 TH/MM3 Red Blood Count 4.48 MIL/MM3 Hemoglobin 13.7 GM/DL Hematocrit 40.0 % Mean Corpuscular Volume 89.4 FL Mean Corpuscular Hemoglobin 30.5 PG Mean Corpuscular Hemoglobin Concent 34.1 % Red Cell Distribution Width 14.4 % Platelet Count 130 TH/MM3 Mean Platelet Volume 7.3 FL Neutrophils (%) (Auto) 74.7 % Lymphocytes (%) (Auto) 9.9 % Monocytes (%) (Auto) 11.9 % Eosinophils (%) (Auto) 3.1 % Basophils (%) (Auto) 0.4 % Neutrophils # (Auto) 2.8 TH/MM3 Lymphocytes # (Auto) 0.4 TH/MM3 Monocytes # (Auto) 0.4 TH/MM3 Eosinophils # (Auto) 0.1 TH/MM3 Basophils # (Auto) 0.0 TH/MM3 CBC Comment DIFF FINAL Differential Comment Blood Urea Nitrogen 8 MG/DL Creatinine 0.90 MG/DL Random Glucose 116 MG/DL Total Protein 7.3 GM/DL Albumin 3.7 GM/DL Calcium Level 8.8 MG/DL Alkaline Phosphatase 80 U/L Aspartate Amino Transf (AST/SGOT) 62 U/L Alanine Aminotransferase (ALT/SGPT) 51 U/L Total Bilirubin 0.8 MG/DL Sodium Level 129 MEQ/L Potassium Level 4.3 MEQ/L Chloride Level 92 MEQ/L Carbon Dioxide Level 28.5 MEQ/L Anion Gap 9 MEQ/L Estimat Glomerular Filtration Rate 82 ML/MIN Total Creatine Kinase 192 U/L Creatine Kinase MB 3.8 NG/ML Troponin I LESS THAN 0.02 NG/ML B-Type Natriuretic Peptide 85 PG/ML Lipase 129 U/L Thyroid Stimulating Hormone 3rd Gen 1.010 uIU/ML Urine Collection Type CLEAN CATCH Urine Color YELLOW Urine Turbidity CLEAR Urine pH 6.5 Urine Specific [place] 1.016 Urine Protein NEG mg/dL Urine Glucose (UA) NEG mg/dL Urine Ketones TRACE mg/dL Urine Occult Blood NEG Urine Nitrite NEG Urine Bilirubin NEG Urine Leukocyte Esterase NEG Urine WBC 0-2 /hpf Microscopic Urinalysis Comment CULT NOT INDICATED MDM Medical Decision Making Medical Screen Exam Complete: Yes Emergency Medical Condition: Yes Medical Record Reviewed: Yes Interpretation(s) nsr, 79, first degree av block, rbbb, but without stemi pattern. Differential Diagnosis viral syndrome v pna v bronchitis v flu v atypical mi Narrative Course cxr neg for pna/ptx, flu test neg, cbc neg for leukocytosis or major shift, normal bnp, neg troponin however borderline elevation of ckmb. advised patient of need to stay, however patient was vehement of not staying. patient did not have chest pain at any point, wheezing resolved with nebulizer, and bp improved with clonidine. patient has the mental werewithall to engage in his care, and to decide for AMA. patient has been warned and accepts risks including , permanent disability and cannot exclude nonstemi Diagnosis Primary Impression: Hypertension Qualified Codes: I10 - Essential (primary) hypertension Additional Impressions: Bronchospasm with bronchitis, acute AMA Patient Instructions: Against Medical Advice (ED), General Instructions Additional Instructions: YOU WERE ADVISED TO STAY FOR OBSERVATION DUE TO ABNORMAL HEART ENZYME, CKMB, YOU DID NOT WANT TO STAY AND DECIDED TO SIGN AGAINST MEDICAL ADVISE. DO NOT PRESUME THAT BEING ABLE TO LEAVE THE HOSPITAL WITH PRESCRIPTIONS MEANS EVERYTHING IS OK WITH YOU, NOR THAT I RECOMMENDED YOU TO GO HOME. Scripts Albuterol 18 GM Inh (Ventolin Hfa 18 GM Inh) 90 Mcg/Act Aer 1 PUFF INH Q4H Y for SHORTNESS OF BREATH, #1 INHALER 0 Refills Prov: Vikas Wing MD 09/30/17 Azithromycin (Zithromax Z-Jayme) 250 Mg Dspk 250 MG PO DIRECTED for Infection, #1 DSPK 0 Refills 500 MG (2 tabs) day 1, then 1 tab days 2-5. Prov: Vikas Wing MD 09/30/17 Methylprednisolone Dosepak (Medrol Dosepak) 4 Mg Dspk 4 MG PO DIRECTED, #1 DSPK 0 Refills Per Pharmacist direction Prov: Vikas Wing MD 09/30/17 Disposition: 07 AGAINST MEDICAL ADVICE Condition: Stable Vikas Wing MD Sep 30, 2017 09:52
[2017-09-30] MEDS ORDERED: cloNIDine HCL 0.1 MG TAB PO ONE (10:00)
[2017-09-30 10:10] LABS: AUTOMATED NEUTROPHIL # 2.8 TH/MM3 (1.8-7.7); BASOPHIL % 0.4 % (0.0-2.0); EOSINOPHIL # 0.1 TH/MM3 (0-0.4); EOSINOPHIL % 3.1 % (0.0-4.0); HEMOGLOBIN 13.7 GM/DL (13.0-17.0); LYMPH % 9.9 % (9.0-44.0); LYMPHOCYTE # 0.4 TH/MM3 (1.0-4.8); MEAN CELL VOLUME 89.4 FL (80.0-100.0); MEAN CORPUSCULAR HEMOGLOBIN 30.5 PG (27.0-34.0); MEAN CORPUSCULAR HGB CONC 34.1 % (32.0-36.0); MEAN PLATELET VOLUME 7.3 FL (7.0-11.0); MONO % 11.9 % (0.0-8.0); MONOCYTE # 0.4 TH/MM3 (0-0.9); NEUT % 74.7 % (16.0-70.0); PLATELET COUNT 130 TH/MM3 (150-450); RED BLOOD COUNT 4.48 MIL/MM3 (4.50-5.90); RED CELL DISTRIBUTION WIDTH 14.4 % (11.6-17.2); WHITE BLOOD COUNT 3.7 TH/MM3 (4.0-11.0)
[2017-09-30 10:17] LABS: CHLORIDE 92 MEQ/L (98-107); SODIUM (NA) 129 MEQ/L (136-145)
[2017-09-30 10:21] LABS: CALCIUM 8.8 MG/DL (8.5-10.1)
[2017-09-30 10:22] LABS: ALBUMIN 3.7 GM/DL (3.4-5.0); BICARBONATE 28.5 MEQ/L (21.0-32.0); BLOOD UREA NITROGEN 8 MG/DL (7-18); GLUCOSE,RANDOM 116 MG/DL (74-106); LIPASE 129 U/L (73-393)
[2017-09-30 10:25] LABS: ALT (GPT) 51 U/L (12-78); GLOMERULAR FILTRATION RATE 82 ML/MIN (>89)
--- NOTE | 2017-09-30 10:25 | RADRPT ---
EXAM DATE/TIME: 09/30/2017 10:09 [facility] COMPARISON: No previous studies available for comparison. INDICATIONS : Cough, congestion MEDICAL HISTORY : None. SURGICAL HISTORY : None. ENCOUNTER: Initial ACUITY: 1 day PAIN SCORE: 0/10 LOCATION: Bilateral chest FINDINGS: PA and lateral views of the chest demonstrate the lungs to be symmetrically aerated without evidence of mass, infiltrate or effusion. The cardiomediastinal contours are unremarkable. Old healed rib fra ctures are seen. CONCLUSION: No acute disease. Yannick Martinez MD on September 30, 2017 at 10:23 Board Certified Radiologist. This report was verified electronically.
[2017-09-30 10:26] LABS: AST (GOT) 62 U/L (15-37); TOTAL PROTEIN 7.3 GM/DL (6.4-8.2)
[2017-09-30 10:28] LABS: ALKALINE PHOSPHATASE 80 U/L (45-117)
[2017-09-30 10:30] LABS: TROPONIN I LESS THAN 0.02 NG/ML (0.02-0.05)
[2017-09-30 10:32] LABS: TOTAL BILIRUBIN ADULT 0.8 MG/DL (0.2-1.0)
[2017-09-30 10:42] VITALS: BP 162/73; PULSE 81; RESP 16; O2SAT 94
[2017-09-30] MEDS ORDERED: LEVOFLOXACIN 750 MG TAB PO ONE (11:00)
[2017-09-30] MEDS ORDERED: RESP: ALBUTEROL 2.5 MG/IPRATROPIUM 0.5 MG NEB (SCH) INH ONE (11:00)
[2017-09-30 11:04] VITALS: BP 182/72; PULSE 71; RESP 24; O2SAT 95
[2017-09-30 11:15] LABS: BILIRUBIN, URINE NEG (NEG); BLOOD, URINE NEG (NEG); GLUCOSE,URINE NEG (NEG); KETONE, URINE TRACE mg/dL (NEG); NITRITE,URINE NEG (NEG); PH, URINE 6.5 (5.0-8.5); URINE LEUKOCYTE ESTERASE NEG (NEG)
[2017-09-30] MEDS ORDERED: VENTAER INH (11:15)
[2017-09-30] MEDS ORDERED: ZITHTAB PO (11:15)
[2017-09-30] MEDS ORDERED: MEDR4PAK PO (11:15)
[2017-09-30 11:17] LABS: URINE COLOR YELLOW (YELLW/STRAW)
[2017-09-30 11:26] LABS: WBC, URINE 0-2 /hpf (0-5)
--- NOTE | 2017-09-30 22:28 | EKG ---
Date Performed: 09/30/2017 Time Performed: 09:54:50 PTAGE: 77 years EKG: Sinus rhythm WITH FIRST DEGREE AV BLOCK RIGHT BUNDLE BRANCH BLOCK ABNORMAL ECG No significant change from prior e lectrocardiogram. PREVIOUS TRACING : 03/19/2000 13.45 DOCTOR: Jose David Jean Interpretating Date/Time 09/30/2017 22:26:17
== END 2017-09-30 11:51 | disposition left against medical advice (07) ==
LOC: PHED 09:18
DX: I10 Essential (primary) hypertension (principal); J20.9 Acute bronchitis, unspecified; I44.0 Atrioventricular block, first degree; I45.10 Unspecified right bundle-branch block; R94.31 Abnormal electrocardiogram [ECG] [EKG]; Z72.89 Other problems related to lifestyle
CPT/HCPCS: 71020; 80053; 81001; 82550; 82552; 83690; 83880; 84443; 84484; 85025; 87804; 93005; 94664; 99284